=== PATIENT | female | born 1980 | race Caucasian/White ===

== ENCOUNTER 2016-10-22 17:43 | Emergency (ER) | payer MEDICAID ==
[~2016-10-22] VITALS: Ht 165.1 cm; Wt 91.6 kg
[2016-10-22 17:56] VITALS: BP_SYST 146
--- NOTE | 2016-10-22 20:00 | NUR ---
Dr Rodríguez at bedside to evaluate patient.
--- NOTE | 2016-10-22 20:00 | NUR ---
Patient to ER bed 02 to gown for evaluation. Side rails up. Report given to Hiram
--- NOTE | 2016-10-22 20:15 | NUR ---
Patient to ED for evaluation of left elbow/arm pain s/p non-syncopal trip and fall. Patient denies head, neck, or back pain. Patient denies LOC, patient able to ambulate to bed 2 with slow, steady gait. Patient had x-rays done while she was waiting in triage, awaiting results. Patient has been seen and evaluated by Dr Rodríguez-will continue to observe and assess.
[2016-10-22] MEDS ORDERED: IBUPROFEN 800 MG TABLET PO ONE (20:30)
[2016-10-22 21:04] VITALS: BP_SYST 144
--- NOTE | 2016-10-22 21:06 | NUR ---
Patient given written and verbal discharge instructions and verbalizes understanding. ER MD discussed with patient the results and treatment provided. Patient in stable condition. ID arm band removed. Rx of Motrin given. Patient educated on pain management and to follow up with PMD. Pain Scale 7. Opportunity for questions provided and answered.
== END 2016-10-22 21:04 | disposition home or self-care (01) ==
LOC: SED 17:43
DX: S59.802A Other specified injuries of left elbow, initial encounter (principal); E11.9 Type 2 diabetes mellitus without complications; I10 Essential (primary) hypertension; E78.00 Pure hypercholesterolemia, unspecified; Z88.0 Allergy status to penicillin; W18.39XA Other fall on same level, initial encounter; Y93.89 Activity, other specified; Y92.89 Other specified places as the place of occurrence of the external cause; Y99.8 Other external cause status
CPT/HCPCS: 99284

== ENCOUNTER 2016-10-29 11:39 | Emergency (ER) | payer MEDICAID ==
[~2016-10-29] VITALS: Ht 165.1 cm; Wt 99.8 kg
[2016-10-29 11:43] VITALS: BP_SYST 155
[2016-10-29 12:46] VITALS: BP_SYST 148
== END 2016-10-29 12:46 | disposition home or self-care (01) ==
LOC: SED 11:39
DX: M25.422 Effusion, left elbow (principal); E11.9 Type 2 diabetes mellitus without complications; I10 Essential (primary) hypertension; E78.00 Pure hypercholesterolemia, unspecified; Z88.0 Allergy status to penicillin
CPT/HCPCS: 99284

== ENCOUNTER 2017-05-28 10:26 | Emergency (ER) | payer MEDICAID ==
[~2017-05-28] VITALS: Ht 165.1 cm; Wt 92.5 kg
[2017-05-28 10:36] VITALS: BP_SYST 161
[2017-05-28] MEDS ORDERED: NACL 0.9% 1,000 ML IV ONE (10:45)
[2017-05-28] MEDS ORDERED: ASPIRIN 81 MG TAB.CHEW PO ONE (10:45)
[2017-05-28] MEDS ORDERED: ONDANSETRON HCL 4 MG/2 ML VIAL IVP ONE (10:45)
[2017-05-28 11:16] LABS: BASOPHILS # (AUTO) 0.1 K/uL (0.0-0.2); EOSINOPHILS # (AUTO) 0.1 K/uL (0.0-0.4); EOSINOPHILS % (AUTO) 1.7 % (0.0-4.0); HEMATOCRIT 38.3 % (36-48); HEMOGLOBIN 12.5 g/dL (12.0-16.0); LYMPHOCYTES # (AUTO) 2.2 K/uL (1.0-5.5); LYMPHOCYTES % (AUTO) 40.6 % (20.5-51.5); MEAN CORPUSCULAR HEMOGLOBIN 27 pg (27-31); MEAN CORPUSCULAR HGB CONC 33 % (32-36); MEAN CORPUSCULAR VOLUME 83 fL (79.0-98.0); MONOCYTES # (AUTO) 0.4 K/uL (0.0-1.0); MONOCYTES % (AUTO) 7.8 % (1.7-9.3); NEUTROPHILS # (AUTO) 2.6 K/uL (1.8-7.7); NEUTROPHILS % (AUTO) 48.9 % (40.0-70.0); PLATELET COUNT (AUTO) 398 K/uL (130-430); RED BLOOD CELL COUNT(AUTO) 4.63 MIL/uL (4.2-6.2); RED CELL DISTRIBUTION WIDTH 12.8 % (9.0-15.0); WHITE BLOOD COUNT (AUTO) 5.4 K/uL (4.8-10.8)
[2017-05-28 11:29] LABS: ANION GAP 6 (5-15); CALCIUM 9.5 mg/dL (8.4-11.0); CHLORIDE 103 mmol/L (98-107); CREATININE 0.51 mg/dL (0.55-1.30); GLUCOSE 150 mg/dL (70-99); POTASSIUM 3.9 mmol/L (3.5-5.1); SODIUM SERUM 136 mmol/L (136-145); UREA NITROGEN, BLOOD 11 mg/dL (8-21)
[2017-05-28 11:30] LABS: GFR AFRICAN AMERICAN 175 mL/min (>90)
[2017-05-28 11:33] LABS: ALANINE AMINOTRANSFERASE 85 U/L (12-78); ALBUMIN 3.7 g/dL (3.4-4.8); ASPARTATE AMINOTRANSFERASE 37 U/L (10-37); LIPASE 76 U/L (73-393); TOTAL BILIRUBIN 0.8 mg/dL (0.0-1.0)
[2017-05-28 11:34] LABS: ALCOHOL, BLOOD < 3 mg/dL (<10)
[2017-05-28 11:44] LABS: INR 1.1 (0.8-1.2); PROTHROMBIN TIME 11.5 SECS (9.5-12.5)
[2017-05-28 13:15] VITALS: BP_SYST 150
== END 2017-05-28 13:15 | disposition home or self-care (01) ==
LOC: SED 10:26
DX: S50.02XA Contusion of left elbow, initial encounter (principal); S00.83XA Contusion of other part of head, initial encounter; I10 Essential (primary) hypertension; E11.9 Type 2 diabetes mellitus without complications; E78.00 Pure hypercholesterolemia, unspecified; Z88.0 Allergy status to penicillin; W19.XXXA Unspecified fall, initial encounter; Y93.89 Activity, other specified; Y92.89 Other specified places as the place of occurrence of the external cause; Y99.8 Other external cause status
CPT/HCPCS: 36415; 73080; 80053; 83690; 84484; 85025; 85610; 85730; 93005; 96374; 99285; G0482; J2405; J7030